=== PATIENT | male | born 1985 | race Caucasian/White ===

== ENCOUNTER 2024-03-08 23:24 | Emergency (ER) | payer BC ==
[~2024-03-08] VITALS: Ht 180.3 cm; Wt 95.4 kg
[2024-03-08] MEDS ORDERED: DIPHTH,PERTUSS(ACELL),TET VAC 0.5 ML SYRINGE IM ONE (23:45)
[2024-03-08] MEDS ORDERED: KETOROLAC TROMETHAMINE 60 MG/2 ML VIAL IM ONE (23:45)
[2024-03-09] MEDS ORDERED: ONDANSETRON 4 MG TAB ODT SL ONE ×2 (00:15→00:30)
[2024-03-09] MEDS ORDERED: ONDANSETRON 4 MG TAB ODT ONE (00:17)
[2024-03-09] MEDS ORDERED: ONDANSETRON HCL4 MG PO (02:25)
[2024-03-09] MEDS ORDERED: TRAMADOL HCL50 MG PO (02:25)
[2024-03-09] MEDS ORDERED: ONDANSETRON 4 MG HOME.PACK SL ONE (02:30)
[2024-03-09] MEDS ORDERED: TRAMADOL HCL 50 MG HOME.PACK PO ONE (02:30)
[2024-03-09 02:46] VITALS: BP 119/77
== END 2024-03-09 02:47 | disposition home or self-care (01) ==
LOC: ED 23:24
DX: S16.1XXA Strain of muscle, fascia and tendon at neck level, initial encounter (principal); S00.83XA Contusion of other part of head, initial encounter; Y04.8XXA Assault by other bodily force, initial encounter; Z88.2 Allergy status to sulfonamides
CPT/HCPCS: 70450; 70486; 72125; 90471; 90715; 96372; 99284-25; A9270; J1885